=== PATIENT | female | born 1995 | race Asian ===

== ENCOUNTER 2023-12-22 11:09 | Inpatient (IN) | payer OTHER ==
[~2023-12-22] VITALS: Ht 147.3 cm; Wt 59.1 kg
[2023-12-30] VITALS (59 sets, daily range): BP systolic 72–138; BP diastolic 6–89; PULSE 52–136; TEMP 97.5–97.9
--- NOTE | 2023-12-30 00:45 | NUR ---
PT TO LR5 VIA WHEELCHAIR. PT STATES SHE SROM'D AT 2345. THE PATIENT STATES THAT SHE IS NOT FEELING THE BABY MOVE AT THIS TIME. PLACED ON EFM WITH IMMEDIATE HEART TONES HEARD UPON PLACEMENT. PT "RELIEVED". THE PATIENT IS VERY DISTURBED BY THE AMOUNT OF FLUIDS LEAKING. THIS RN ADVISED THAT THIS IS NORMAL. PT IS PLACED ON EFM & TOCO. BABY IS CATEGORY 1 TRACING, NO ACCELS AT THIS TIME, NO DECELS. CONTRACTIONS APPEAR EVERY 2-6 MINUTES. THE PATIENT STATES THAT SHE IS NOT IN SEVERE PAIN DESPITE HER MOANING AND FACIAL GRIMACING. PT IS RUPTURED. WILL NOTIFY PHYSICIAN FOR ADMISSION ORDERS.
[2023-12-30 01:34] LABS: BASO % 0.4 % (0.0-2.0); EOS % 0.4 % (0.0-4.0); GRAN # 4.7 K/mm3 (1.4-6.5); GRAN % 59.5 % (42.2-75.2); HEMATOCRIT 38.6 % (37.0-47.0); HEMOGLOBIN 13.2 g/dl (12.5-16.0); LYMPH # 2.3 K/mm3 (1.2-3.4); LYMPH % 29.2 % (20.0-51.0); MEAN CELL VOLUME 90 fl (80.0-100.0); MEAN CORPUSCULAR HEMOGLOBIN 31 pg (27-31); MEAN CORPUSCULAR HGB CONC 34 g/dl (33.0-37.0); MEAN PLATELET VOLUME 12.7 fl (7.4-10.4); MONO # 0.8 K/mm3 (0.1-0.6); MONO % 9.4 % (1.7-9.3); PLATELET COUNT 130 K/mm3 (130-400); RED BLOOD COUNT 4.31 M/mm3 (4.10-5.30)
[2023-12-30] MEDS ORDERED: LR & Oxytocin 500 ML IV SCH (02:30)
[2023-12-30] MEDS ORDERED: LR 1,000 ML IV SCH (02:30)
--- NOTE | 2023-12-30 02:56 | NUR ---
AMADO GONZALEZ IN ROOM AT 0245 TO DISCUSS EPIDURAL PLACEMENT. PT AND SPOUSE VERBALIZED UNDERSTANDING. AGREES TO CONTINUE WITH PROCEDURE. 0256: SINGLE SHOT ADMINISTERED PER AMADO GONZALEZ. PT TOLERATED PROCEDURE WELL. PT REPOSITIONED TO WEDGE LEFT, NO OTHER CONCERNS REGARDING THIS PATIENT AT THE PRESENT TIME.
[2023-12-30] MEDS ORDERED: ROPivacaine PF 0.2% 200 ML IV ONE (03:06)
[2023-12-30] MEDS ORDERED: diphenhydrAMINE 50 MG/ML 1 ML VIAL IV PRN (03:15)
[2023-12-30] MEDS ORDERED: Ondansetron 4 MG/2 ML VIAL IV PRN (03:15)
[2023-12-30] MEDS ORDERED: ePHEDrine 50 MG/10 ML VIAL IV PRN (03:15)
[2023-12-30] MEDS ORDERED: Naloxone 0.4 MG/ML VIAL IV PRN ×2 (03:15→16:00)
[2023-12-30] MEDS ORDERED: diphenhydrAMINE 25 MG CAP PO PRN (03:15)
--- NOTE | 2023-12-30 03:30 | NUR ---
0322: THIS RN NOTICED [facility] DECEL. AT BEDSIDE IMMEDIATELY, DECEL TO THE 80'S, REPOSITIONED TO LEFT LATERAL RETURN TO BASELINE WITH POSITION CHANGE AFTER 10 SECONDS. 0323: DECELERATION AGAIN TO THE 60'S, REPOSITIONED TO RL. RETURNED TO BASELINE AFTER 3 MINUTES. DURING WHICH PT WAS SUPINE FOR SVE: /-3. 0330: PLACED HOLLAND AT THIS TIME. PT TOLERATED PROCEDURE WITHOUT DISCOMFORT. 425ML OF CLEAR YELLOW URINE WITH PLACEMENT. NO OTHER CONCERNS AT THIS TIME.
--- NOTE | 2023-12-30 06:30 | NUR ---
SEE PHYSICIAN NOTIFICATION; PT HAS BEEN HAVING INTERMITTENT TACHYCARDIA. SHE COMPLAINS OF "DISCOMFORT, EVERYWHERE". REQUESTS CONSULTING CARDIOLOGY, EKG AND TELEMETERY UNIT. NO OTHER CONCERNS AT THIS TIME. WITH CARDIOLOGY PAGED AT 8261.
--- NOTE | 2023-12-30 06:45 | NUR ---
ROLES, EVENT PLANNING MANAGER OB , AT PT BEDSIDE ASSESSING PT DUE TO MATERNAL INTERMITENT TACHYCARDIA. PT SPOUSE SUPPORTIVE AT BEDSIDE.
[2023-12-30 08:49] LABS: CALCIUM 10.1 mg/dL (8.4-10.2); CREATININE, serum 0.56 mg/dL (0.57-1.11); POTASSIUM 3.8 mmol/L (3.5-4.5)
--- NOTE | 2023-12-30 14:53 | NUR ---
1310 THIS RN SVE -/+1, PT REPOSITIONED BEDREST PEANUT BALL LEFT LATERAL. 1315 NURSE YECENIA AT BEDSIDE WITH THIS RN, SVE /+2 PER RN YECENIA. , CHARGE NURSE, AND NURSERY NURSE NOTIFIED OF COMPLETE EXAM. ROOM SET FOR DELIVERY AND THIS RN EDUCATES PT AND PT SPOUSE ON PUSHING. 1324 BED SET WITH STIRRUPS AND PT BEGINS PUSHING EFFECTIVELY. 1445 AT PT BEDSIDE DRESSED FOR DELIVERY, BED SET FOR DELIVERY, PT SPOUSE SUPPORTIVE AT BEDSIDE, NURSERY AND CHARGE NURSE IN ROOM. 1453 OF VIABLE MALE INFANT PER , BULB SUCTIONED BY AND CORD CLAMPED BY PT SPOUSE. PLACED ON MATERNAL CHEST AND BABY CARE ASSUMED BY NURSERY NURSE. 1455 OF PLACENTA PER , BEGUN 2ND DEGREE REPAIR. PITOCIN BEGAN PER PROTOCOL, PT VS STABLE, SPOUSE SUPPORTIVE AT BEDSIDE. 1510 PT REPOSITIONED COMFORTABLY, ICE PAD PLACED ON PERINEUM, ROOM CLEANED AFTER DELIVERY. PT VS STABLE, FUNDUS FIRM AT UMBILICUS, LOCHIA SCANT, NO CLOTS.
[2023-12-30] MEDS ORDERED: Loratadine 10 MG TAB PO PRN (15:30)
[2023-12-30] MEDS ORDERED: Magnes Hydrox (MOM) 80 MG/ML 30 ML CUP PO PRN (15:30)
[2023-12-30] MEDS ORDERED: Ibuprofen 800 MG TAB PO SCH (16:00)
[2023-12-30] MEDS ORDERED: Phenylephrine/Mineral Oil/Petrolatum 57 GM TUBE RC PRN (16:00)
[2023-12-30] MEDS ORDERED: Acetaminophen 500 MG TAB PO SCH (16:00)
[2023-12-30] MEDS ORDERED: Witch Hazel 50% Pads Bulk TUB TP PRN (16:00)
[2023-12-30] MEDS ORDERED: Mag/Al Hydrox/Simeth Susp 30 ML CUP PO PRN (16:00)
[2023-12-30] MEDS ORDERED: oxyCODONE 5 MG TAB PO PRN (16:00)
[2023-12-30] MEDS ORDERED: Measles/Mumps/Rubella Virus Vaccine Live w Diluent 0.5 ML VIAL SQ SCH (16:00)
[2023-12-30] MEDS ORDERED: Sennosides/Docusate 8.6-50 MG TAB PO SCH (17:00)
[2023-12-30] MEDS ORDERED: traZODone 50 MG TAB PO PRN (21:00)
[2023-12-31 02:00] VITALS: BP 135/74; PULSE 80
[2023-12-31 07:15] VITALS: BP 127/76; PULSE 77; TEMP 97.8
--- NOTE | 2023-12-31 09:00 | NUR ---
PT REPORTS SHE CANNOT CARE FOR BABY BECAUSE SHE IS IN PAIN. THIS RN ADMINISTERS PERSCRIBED PAIN MEDS AND HELPS UNDERSTAND PT EMOTIONS. SHE EXCLAIMS SHE IS "TIRED AND IN PAIN SO IT IS HARD AND I CAN'T CARE FOR BABY." THIS RN GIVES PT THE OPTION TO GET SOME REST FOR A COUPLE HOURS AND THAT MIGHT BE ABLE TO HELP. PT AGREES THAT SHE NEEDS REST AND THIS RN TRANSFERS BABY BY CRIB TO NURSERY.
--- NOTE | 2023-12-31 10:06 | NUR ---
Initial visit; attempt; Physician present, Political Reporter left card offering congratulations and Blessings for the of patient's son. Political Reporter also informed family of the availability of Spiritual Care at our hospital.
[2023-12-31 12:00] VITALS: BP 116/77; PULSE 72; TEMP 98.7
[2023-12-31 16:00] VITALS: BP 119/78; PULSE 68; TEMP 98.4
--- NOTE | 2023-12-31 16:00 | NUR ---
PT AND PT SPOUSE REPORTED PUMPING FOR 15 MIN BUT NOT ABLE TO COLLECT ANY COLOSTRUM.
[2023-12-31 19:00] VITALS: BP 112/67; PULSE 81; TEMP 98.1
[2024-01-01 07:00] VITALS: BP 126/67; PULSE 67; TEMP 97.8
[2024-01-01] MEDS ORDERED: Omeprazole 20 MG **** subs to Pantoprazole 40 MG PO SCH (07:35)
[2024-01-01] MEDS ORDERED: TYLENOL 500MG500 MG PO (07:37)
[2024-01-01] MEDS ORDERED: ROXICODONE 55 MG/TAB PO (07:37)
[2024-01-01] MEDS ORDERED: MOTRIN 800800 MG/TAB PO (07:37)
[2024-01-01 14:00] VITALS: BP 114/67; PULSE 84; TEMP 97.7
[2024-01-01] MEDS ORDERED: Ibuprofen 800 MG TAB PO SCH (18:00)
== END 2024-01-01 17:35 | disposition home or self-care (01) | DRG 807 ==
LOC: LDR 12-30 00:35 → OB 12-30 11:08
PROVIDERS: Obstetrics & Gynecology; ADMIT Obstetrics & Gynecology
PROC: 10E0XZZ Delivery of Products of Conception, External Approach (ICD-10-PCS; principal; 2023-12-30)
PROC: 0KQM0ZZ Repair Perineum Muscle, Open Approach (ICD-10-PCS; 2023-12-30)
DX: O36.5930 Maternal care for other known or suspected poor fetal growth, third trimester, not applicable or unspecified (principal); Z37.0 Single live birth; O70.1 Second degree perineal laceration during delivery; O26.53 Maternal hypotension syndrome, third trimester; O99.892 Other specified diseases and conditions complicating childbirth; I34.0 Nonrheumatic mitral (valve) insufficiency; R00.0 Tachycardia, unspecified; Z3A.39 39 weeks gestation of pregnancy; Z23 Encounter for immunization
CPT/HCPCS: J1200; J2590; J2795; J7120